=== PATIENT | male | born 1975 | race American Indian/Alaskan Native ===

== ENCOUNTER 2017-03-13 12:47 | Emergency (ER) | payer OTHER ==
--- NOTE | 2017-03-13 13:16 | Emergency Department Report ---
Entered by HERNANDO MCGOWAN, acting as scribe for NIYA CRAIG NP. Chief Complaint: Dyspnea/Respdistress Stated Complaint: SOB Time Seen by Provider: 03/13/17 13:04 - HPI History of Present Illness: 41 y/o male with Hx of HIV, presents with SOB that started 1 month ago. Sx include green sputum producing cough, chills, and fever. Pt notes having PNA 4 years ago. Pt endorses tobacco use and ETOH use occasionally. - ROS Review of Systems: +cough +fever +chills +SOB - Exam Vital Signs: Vital Signs 03/13/17 13:04 Temperature 98.3 F Pulse Rate 72 Respiratory 18 Rate Blood Pressure 111/77 O2 Sat by Pulse 100 Oximetry Physical Exam: PT looks well, non toxic. no acute resp distress No wheezing MSE screening note: Focused history and physical exam performed. Due to findings the following was ordered: ED Disposition for MSE Condition: Stable This documentation as recorded by the scribe,HERNANDO MCGOWAN,accurately reflects the service I personally performed and the decisions made by ,NIYA CRAIG , CLIENT EXPERIENCE ADMINISTRATOR.
[2017-03-13 13:33] LABS: Basophils % (Auto) 0.3 % (0.0-1.8); Eosinophils % (Auto) 1.7 % (0.0-4.3); Hematocrit 43.7 % (35.5-45.6); Hemoglobin 14.3 gm/dl (11.8-15.2); Mean Corpuscular HGB Conc 33 % (32-34); Mean Corpuscular Hemoglobin 28 pg (28-32); Mean Corpuscular Volume 85 fl (84-94); Platelet Count 182 K/mm3 (140-440); Red Blood Count 5.16 M/mm3 (3.65-5.03); Red Cell Distribution Width 13.9 % (13.2-15.2); White Blood Count 6.1 K/mm3 (4.5-11.0)
--- NOTE | 2017-03-13 13:40 | XRay Report ---
CHEST 2 VIEWS INDICATION: Cough, history of HIV. COMPARISON: None similar at this institution. FINDINGS: PA and lateral chest radiographs demonstrate normal cardiomediastinal silhouette. Clear lungs. Intact bones. CONCLUSION: No acute disease in the chest. Thank you for the opportunity to participate in this patient's care.
[2017-03-13 13:53] LABS: Alanine Aminotransferase 29 units/L (7-56); Albumin 4.3 g/dL (3.9-5); Albumin/Globulin Ratio 1.2 %; Alkaline Phosphatase 59 units/L (35-129); Anion Gap 16 mmol/L; BUN/Creatinine Ratio 12.22; Blood Urea Nitrogen 11 mg/dL (9-20); Calcium 8.8 mg/dL (8.4-10.2); Carbon Dioxide 27 mmol/L (22-30); Chloride 98.6 mmol/L (98-107); Glucose 103 mg/dL (75-100); Potassium 3.8 mmol/L (3.6-5.0); Sodium 138 mmol/L (137-145); Total Protein 7.8 g/dL (6.3-8.2)
[2017-03-13 22:15] VITALS: BP 131/87
--- NOTE | 2017-03-13 22:57 | Emergency Department Report ---
ED Fever HPI - General Chief Complaint: Dyspnea/Respdistress Stated Complaint: SOB Time Seen by Provider: 03/13/17 13:04 Source: patient, EMS Exam Limitations: no limitations - History of Present Illness Initial Comments: Patient stated that he has been having cough and fever and chills for more than one month. It is known HIV patients is not on any medication. Denied any nausea vomiting or diarrhea Timing/Duration: week (5) Fever Severity/Quality: low grade Associated Symptoms: cough. denies: chest pain, confusion, headache, muscle aches, shortness of breath, stiff neck ED Review of Systems ROS: Stated complaint: SOB Other details as noted in HPI Comment: All other systems reviewed and negative Constitutional: chills, fever. denies: diaphoresis Respiratory: cough, shortness of breath. denies: wheezing Cardiovascular: denies: chest pain, palpitations Gastrointestinal: denies: abdominal pain, nausea Skin: denies: rash, lesions Neurological: denies: headache ED Past Medical Hx - Past Medical History Hx HIV: Yes Additional medical history: pneumonia - Surgical History Past Surgical History?: No - Social History Smoking Status: Current Every Day Smoker Substance Use Type: Alcohol - Medications Home Medications: Home Medications Medication Instructions Recorded Confirmed Last Taken Type P-Ephed HCl/Codeine/Guaifen 10 ml PO Q4H PRN #100 ml 03/13/17 Unknown Rx [Cheratussin DAC 30-10-100 mg/5 ml] Sulfamethoxazole/Trimethoprim 1 each PO BID #14 tablet 03/13/17 Unknown Rx [Bactrim DS TAB] ED Physical Exam - General Limitations: No Limitations General appearance: alert, in no apparent distress - Head Head exam: Present: normocephalic - Eye Eye exam: Present: normal appearance - ENT ENT exam: Present: normal exam - Neck Neck exam: Present: normal inspection - Respiratory Respiratory exam: Present: normal lung sounds bilaterally. Absent: wheezes, rales, rhonchi, stridor, chest wall tenderness - Cardiovascular Cardiovascular Exam: Present: regular rate, normal rhythm, normal heart sounds - GI/Abdominal GI/Abdominal exam: Present: soft. Absent: distended, tenderness, guarding, rebound, normal bowel sounds, mass, pulsatile mass, hernia - Extremities Exam Extremities exam: Present: normal inspection - Back Exam Back exam: Present: normal inspection. Absent: CVA tenderness (R), CVA tenderness (L) - Neurological Exam Neurological exam: Present: alert, oriented X3 - Skin Skin exam: Present: warm, intact, normal color ED Course Vital Signs 03/13/17 03/13/17 13:04 22:15 Temperature 98.3 F 98.1 F Pulse Rate 72 70 Respiratory 18 18 Rate Blood Pressure 111/77 131/87 O2 Sat by Pulse 100 100 Oximetry ED Medical Decision Making - Lab Data Result diagrams: 03/13/17 13:19 03/13/17 13:19 Critical care attestation.: If time is entered above; I have spent that time in minutes in the direct care of this critically ill patient, excluding procedure time. ED Disposition Clinical Impression: Fever and chills, Acute bronchitis Disposition: TO HOME OR SELFCARE Is pt being admited?: No Does the pt Need Aspirin: No Condition: Stable Instructions: Acute Bronchitis (ED) Prescriptions: P-Ephed HCl/Codeine/Guaifen [Cheratussin DAC 30-10-100 mg/5 ml] 10 ml PO Q4H PRN #100 ml PRN Reason: Cough Sulfamethoxazole/Trimethoprim [Bactrim DS TAB] 1 each PO BID #14 tablet Referrals: PRIMARY CAREMD [Primary Care Provider] - 3-5 Days RYAN SOMMER MD [Staff Physician] - 3-5 Days
== END 2017-03-13 23:00 | disposition home or self-care (01) ==
LOC: ED 12:47
DX: J20.9 Acute bronchitis, unspecified (principal); F17.210 Nicotine dependence, cigarettes, uncomplicated
CPT/HCPCS: 36415; 71020; 80053; 85025; 99283